=== PATIENT | male | born 1930 | race Caucasian/White ===

== ENCOUNTER 2019-06-15 23:57 | Inpatient (IN) | payer MEDICARE ==
[~2019-06-15] VITALS: Ht 185.4 cm; Wt 77.7 kg
[2019-06-16] MEDS ORDERED: SODIUM CHLORIDE 0.9% 1,000 ML IV ONE (01:37)
[2019-06-16 02:14] LABS: BASOPHILS % 0.6 % (0.0-2.0); EOSINOPHILS % 0.4 % (0.0-5.0); HEMATOCRIT. 36.1 % (42.0-52.0); HEMOGLOBIN. 12.7 g/dL (14.0-18.0); LYMPHOCYTES % 10.3 % (20.0-50.0); MEAN CORPUSCULAR HEMOGLOBIN 35.2 pg (28.0-32.0); MEAN PLATELET VOLUME 7.4 fl (7.4-10.4); MONOCYTES % 7.4 % (2.0-8.0); NEUTROPHILS % 81.3 % (40.0-76.0); PLATELET 214 x1000/uL (130-400); RED BLOOD CELL COUNT 3.61 mill/uL (4.7-6.1); RED CELL DISTRIBUTION WIDTH 13.4 % (11.6-14.6)
[2019-06-16 02:17] LABS: CHLORIDE 92 mEq/L (98-107)
[2019-06-16 02:22] LABS: ETHANOL BLOOD 266 mg/dL
[2019-06-16 02:26] LABS: CREATINE KINASE 217 IU/L (39-308)
[2019-06-16 03:41] LABS: CLARITY URINE CLEAR (CLEAR); COLOR URINE YELLOW (YELLOW); KETONES URINE NEGATIVE (NEGATIVE); LEUKOCYTE ESTERASE URINE NEGATIVE (NEGATIVE); NITRITE URINE NEGATIVE (NEGATIVE); OCCULT BLOOD URINE NEGATIVE (NEGATIVE); PROTEIN URINE NEGATIVE (NEGATIVE); SPECIFIC GRAVITY URINE 1.008 (1.005-1.030); UROBILINOGEN URINE 0.2 E.U./dL (0.2-1.0)
[2019-06-16 03:54] LABS: *AMPHETAMINES SCREEN URINE NEGATIVE (NEGATIVE); *BARBITURATES SCREEN URINE NEGATIVE (NEGATIVE); *BENZODIAZEPINES SCREEN URINE NEGATIVE (NEGATIVE); *COCAINE SCREEN URINE NEGATIVE (NEGATIVE); METHADONE URINE SCREEN NEGATIVE (NEGATIVE); OPIATES URINE SCREEN NEGATIVE (NEGATIVE); PHENCYCLIDINE URINE SCREEN NEGATIVE (NEGATIVE)
[2019-06-16 03:55] LABS: CANNABINOID URINE SCREEN NEGATIVE (NEGATIVE)
[2019-06-16] MEDS ORDERED: MAGNESIUM/ALUMINUM HYDROXIDE/SIMETHICONE 30ML UDC PO PRN (08:45)
[2019-06-16] MEDS ORDERED: IPRATROPIUM/ALBUTEROL 0.5-3(2.5)MG/3ML NEB NEB PRN (08:45)
[2019-06-16] MEDS ORDERED: GUAIFENESIN 200MG/10ML SUGAR FREE UDC PO PRN (08:45)
[2019-06-16] MEDS ORDERED: ACETAMINOPHEN 325MG TABLET PO PRN (08:45)
[2019-06-16] MEDS ORDERED: ONDANSETRON HCL 4MG/2ML INJ IV PRN (08:45)
[2019-06-16] MEDS ORDERED: NITROGLYCERIN 0.4MG TABLET SL SL PRN (08:45)
[2019-06-16] MEDS ORDERED: DOCUSATE SODIUM 100MG CAPSULE PO PRN (08:45)
[2019-06-16] MEDS ORDERED: CEFTRIAXONE 1 G PREMIX 50 ML IV SCH (09:00)
[2019-06-16] MEDS ORDERED: MVI, ADULT NO.1 10 ML, FOLIC ACID 1 MG, THIAMINE HCL 100 MG in SODIUM CHLORIDE 0.9% 1,0... IV ONE ×4 (09:00)
[2019-06-16 09:33] LABS: FOLIC ACID (FOLATE) SERUM 7.4 ng/mL (>5.38)
[2019-06-16] MEDS: ENOXAPARIN 40MG/0.4ML SYR SUBCUT SCH (10:20)
[2019-06-16] MEDS: FAMOTIDINE 20MG TABLET PO SCH ×2 (10:20→23:08)
[2019-06-16] MEDS: SUCRALFATE 1 G/10 ML UDC PO SCH ×2 (10:20→23:08)
[2019-06-16] MEDS ORDERED: LEVOFLOXACIN 500MG PREMIX 100 ML IV SCH (11:00)
[2019-06-16] MEDS: KETOROLAC 15MG/ML VIAL IV PRN ×2 (11:30→18:50)
[2019-06-16] MEDS ORDERED: AZITHROMYCIN 500 MG in DEXT 5% WATER 250 ML IV SCH (12:00)
[2019-06-16 16:16] LABS: CREATINE KINASE MB FRACTION 7.9 ng/mL (0.5-3.6)
[2019-06-16 16:27] LABS: CREATINE KINASE 1435 IU/L (39-308)
[2019-06-16] MEDS: CLONIDINE 0.1MG TABLET PO PRN (19:47)
[2019-06-16 20:35] VITALS: BP 168/72
[2019-06-16] MEDS: METOPROLOL TARTRATE 25MG TABLET PO SCH (23:08)
[2019-06-17 00:32] VITALS: BP 172/64
[2019-06-17 00:39] LABS: CREATINE KINASE MB FRACTION 5.1 ng/mL (0.5-3.6)
[2019-06-17 04:00] VITALS: BP 162/66
[2019-06-17] MEDS: KETOROLAC 15MG/ML VIAL IV PRN ×2 (04:29→14:51)
[2019-06-17] MEDS ORDERED: AMLO5TAB88 MT (04:54)
[2019-06-17] MEDS ORDERED: SIMV-43 MT (04:54)
[2019-06-17] MEDS: SUCRALFATE 1 G/10 ML UDC PO SCH ×4 (07:06→22:08)
[2019-06-17 08:00] VITALS: BP 170/66
[2019-06-17] MEDS: ASPIRIN 81MG EC TABLET PO SCH ×2 (09:06→10:43)
[2019-06-17] MEDS: ENOXAPARIN 40MG/0.4ML SYR SUBCUT SCH (09:06)
[2019-06-17] MEDS: METOPROLOL TARTRATE 25MG TABLET PO SCH ×2 (09:06→22:09)
[2019-06-17] MEDS: FAMOTIDINE 20MG TABLET PO SCH ×2 (09:06→22:09)
[2019-06-17] MEDS: CEFTRIAXONE 1 G PREMIX 50 ML IV SCH (10:50)
[2019-06-17] MEDS ORDERED: AZITHROMYCIN 500 MG in DEXT 5% WATER 250 ML IV SCH (12:00)
[2019-06-17] MEDS ORDERED: LEVOFLOXACIN 500MG PREMIX 100 ML IV SCH (14:00)
[2019-06-17 16:00] VITALS: BP 148/55
[2019-06-17 20:00] VITALS: BP 158/65
[2019-06-18] VITALS: BP 151/60
[2019-06-18] MEDS: KETOROLAC 15MG/ML VIAL IV PRN (00:29)
[2019-06-18 04:00] VITALS: BP 182/63
[2019-06-18] MEDS: CLONIDINE 0.1MG TABLET PO PRN (04:46)
[2019-06-18] MEDS: SUCRALFATE 1 G/10 ML UDC PO SCH (05:54)
[2019-06-18 08:00] VITALS: BP 133/64
[2019-06-18] MEDS: ASPIRIN 81MG EC TABLET PO SCH (10:45)
[2019-06-18] MEDS: FAMOTIDINE 20MG TABLET PO SCH (10:45)
[2019-06-18] MEDS: METOPROLOL TARTRATE 25MG TABLET PO SCH (10:48)
[2019-06-18] MEDS: ENOXAPARIN 40MG/0.4ML SYR SUBCUT SCH (10:49)
[2019-06-18] MEDS: CEFTRIAXONE 1 G PREMIX 50 ML IV SCH (10:49)
[2019-06-18 12:27] VITALS: BP 135/68
== END 2019-06-18 13:40 | disposition home or self-care (01) | DRG 871 ==
LOC: ER 23:57 → 6WST 06-16 06:24 → EDBEDREQ 06-16 06:26 → EDBEDREQTM 06-16 06:26 → SUPCPDRO 06-16 08:31 → ENRESERV 06-16 19:06 → CANBEDREQ 06-18 13:48
PROVIDERS: ADMIT Internal Medicine; ATTEND Internal Medicine
DX: A41.9 Sepsis, unspecified organism (principal); G92 Toxic encephalopathy; D63.8 Anemia in other chronic diseases classified elsewhere; E78.00 Pure hypercholesterolemia, unspecified; G89.29 Other chronic pain; I10 Essential (primary) hypertension; F10.129 Alcohol abuse with intoxication, unspecified; M54.9 Dorsalgia, unspecified; Y90.9 Presence of alcohol in blood, level not specified; Z95.1 Presence of aortocoronary bypass graft; Z79.899 Other long term (current) drug therapy
CPT/HCPCS: 36415; 71045; 72070; 72100; 80053; 80061; 80305; 80307; 80320; 80329; 81003; 82550; 82553; 82607; 82746; 83036; 83540; 83550; 83605; 84443; 84484; 85025; 93005; 93306; 93970; 96361; 96365; 96367; 96368; 96372; 96375; 96376; 97162; 99285; 99291; J0456; J0696; J1650; J1885; J1956; J3411; J3490; J7030; J7060; G0480